=== PATIENT | female | born 1985 ===

== ENCOUNTER 2023-05-08 14:11 | Inpatient (IN) ==
[2023-05-08] MEDS ORDERED: Al Hydrox/Mg Hydrox/Simet LIQ 30 ML UDC PO PRN (16:46)
[2023-05-08] MEDS ORDERED: Albuterol HFA INHALER 8 gm MDI INH PRN (16:48)
[2023-05-08] MEDS: DROSPIRENONE 4 MG PO SCH (20:44)
[2023-05-08] MEDS: FLUTICASONE SALMETEROL INH SCH (20:45)
[2023-05-09] MEDS: DROSPIRENONE 4 MG PO SCH (20:35)
[2023-05-11 08:42] LABS: HDL Cholesterol 42.3 mg/dL
== END 2023-05-17 12:00 | disposition home or self-care (01) | DRG 751 ==
LOC: BSU 17:27
PROVIDERS: ADMIT Psychiatry & Neurology Psychiatry; ATTEND Psychiatry & Neurology Psychiatry